=== PATIENT | male | born 2000 | race Caucasian/White ===

== ENCOUNTER 2021-02-21 12:46 | Emergency (ER) | payer OTHER ==
[~2021-02-21] VITALS: Ht 180.3 cm; Wt 71.6 kg
[2021-02-21] MEDS ORDERED: LIDOCAINE 1%/EPI 1:100,000 20 ML VIAL. IJ ONE (14:15)
[2021-02-21] MEDS ORDERED: HYDROcodone/APAP 5/325MG 1 TAB TABLET PO ONE (14:15)
--- NOTE | 2021-02-21 14:41 | PHYS DOC ---
Past History Past Surgical History: No Surgical History (TOMASZ DAVILA APRN) Additional Smoking Information: VAPES Alcohol Use: Occasionally (TOMASZ DAVILA APRN) General Adult EDM: Chief Complaint: INSECT BITE HPI: HPI: Patient is a 20-year-old male who presents with abscess to right side of chest. [facility] and placed on Keflex. Patient states that area is tender. Denies taking anything for discomfort. Denies fever. Denies medical history. (TOMASZ DAVILA APRN) Review of Systems: Review of Systems: Constitutional: Denies fever or chills Eyes: Denies change in visual acuity HENT: Denies nasal congestion or sore throat Respiratory: Denies cough or shortness of breath Cardiovascular: Denies chest pain or edema GI: Denies abdominal pain, nausea, vomiting, bloody stools or diarrhea : Denies dysuria Musculoskeletal: Denies back pain or joint pain Integument: Reports red, swollen, warm bite to right anterior chest Neurologic: Denies headache, focal weakness or sensory changes Endocrine: Denies polyuria or polydipsia Lymphatic: Denies swollen glands Psychiatric: Denies depression or anxiety (TOMASZ DAVILA APRN) Current Medications: Current Meds: Current Medications Medications (Trade) Dose Ordered Sig/Sussy Start Time Stop Time Status Last Admin Dose Admin Acetaminophen/ Hydrocodone Bitart (Lortab 5/325) 1 tab 1X ONCE 02/21/21 14:15 02/21/21 14:16 DC 02/21/21 14:19 1 TAB Lidocaine/ Epinephrine (Xylocaine 1%-Epi 1:100,000) 20 ml 1X ONCE 02/21/21 14:15 02/21/21 14:16 DC 02/21/21 14:20 20 ML (TOMASZ DAVILA APRN) Allergies: Allergies: Allergies Coded Allergies Type Severity Reaction Last Updated Verified No Known Drug Allergies 02/21/21 No (TOMASZ DAVILA APRN) Physical Exam: PE: Constitutional: Well developed, well nourished, no acute distress, non-toxic appearance. [] HENT: Normocephalic, atraumatic, bilateral external ears normal, oropharynx moist, no oral exudates, nose normal. [] Eyes: PERRLA, EOMI, conjunctiva normal, no discharge. [] Neck: Normal range of motion, no tenderness, supple, no stridor. [] Cardiovascular:Heart rate regular rhythm, no murmur [] Lungs & Thorax: Bilateral breath sounds clear to auscultation [] Abdomen: Bowel sounds normal, soft, no tenderness, no masses, no pulsatile masses. [] Skin: Warm, red, raised, tender, abscess to right anterior chest Back: No tenderness, no CVA tenderness. [] Extremities: No tenderness, no cyanosis, no clubbing, ROM intact, no edema. [] Neurologic: Alert and oriented X 3, normal motor function, normal sensory function, no focal deficits noted. [] Psychologic: Affect normal, judgement normal, mood normal. [] (TOMASZ DAVILA APRN) Current Patient Data: Vital Signs: Vital Signs Date Time Temp Pulse Resp B/P (MAP) Pulse Ox O2 Delivery O2 Flow Rate FiO2 02/21/21 14:19 20 Room Air 02/21/21 13:06 98.9 75 113/63 96 (TOMASZ DAVILA APRN) EKG: EKG: [] (TOMASZ DAVILA APRN) Radiology/Procedures: Radiology/Procedures: [] (TOMASZ DAVILA APRN) Heart Score: C/O Chest Pain: No Risk Factors: Risk Factors: DM, Current or recent (<one month) smoker, HTN, HLP, family history of CAD, obesity. Risk Scores: Score 0 - 3: 2.5% MACE over next 6 weeks - Discharge Home Score 4 - 6: 20.3% MACE over next 6 weeks - Admit for Clinical Observation Score 7 - 10: 72.7% MACE over next 6 weeks - Early Invasive Strategies (TOMASZ DAVILA APRN) Course & Med Decision Making: Course & Med Decision Making Pertinent Labs and Imaging studies reviewed. (See chart for details) [] 20-year-old male presents with abscess to right side of chest. Patient was placed on Keflex 3 days ago. Reports tenderness to the area. Hydrocodone 5/325 given for pain. I&D abscess. Purulent discharge was expressed from abscess. Packed with 1 inch gauze. Wound covered with gauze. Instructed patient to keep the wound clean, dry and covered with gauze. Treated patient to remove packing in 48 hours. Take ibuprofen and Tylenol at home for discomfort. Please follow-up with PCP for wound check in 48 hours. (TOMASZ DAVIAL APRN) Course & Med Decision Making I was the Attending physician on the above date of service of this patient. This patient was evaluated, examined, treated, and dispositioned from the emergency department by the mid-level practitioner. Although I was working at the time , no assistance was requested. Electronically signed, Abdi Newman DO (ABDI NEWMAN DO) Jailene Disclaimer: Jailene Disclaimer: This electronic medical record was generated, in whole or in part, using a voice recognition dictation system. (TOMASZ DAVILA APRN) Incision and Drainage Indication: Abscess Procedure: The patient was positioned appropriately and the skin over the incision site was cleaned and prepped for procedure. Local anesthesia was bad work gatherer with epi an incision was then made over the abscess and drainage material was expressed. Loculations were broken up. The drainage cavity was then packed. The patients tetanus status up-to-date. The patient tolerated the procedure well. Complications: No complications. (TOMASZ DAVILA APRN) Departure Departure: Impression: Primary Impression: Abscess Disposition: 01 HOME / SELF CARE / HOMELESS Condition: STABLE Referrals: PCP,UNKNOWN (PCP) Patient Instructions: Abscess, [id number] Additional Instructions: You are seen the emergency room for abscess to the right side of your chest. You were given hydrocodone for pain. Your abscess was drained and packed. Ibuprofen and Tylenol at home for discomfort. Make sure you keep the wound clean dry and covered. I would like you to follow-up with your PCP in 48 hours to have the wound checked, and packing removed. Turn emergency room if you have worsening symptoms or concerns. EMERGENCY DEPARTMENT GENERAL DISCHARGE INSTRUCTIONS Thank you for coming to [facility] (ED) today and trusting us with you care. We trust that you had a positivie experience in our Emergency Department. If you wish to speak to the department management, you may call the director at [phone]. YOUR FOLLOW UP INSTRUCTIONS ARE FOLLOWS: 1. Do you have a private Doctor? If you do not have a private doctor, please ask for a resource list of physicians or clinics that may be able to assist you with follow up care. 2. The Emergency Physician has interpreted your x-rays. The X-Ray specialist will also review them. If there is a change in the findings, you will be notified in 48 hours when at all possible. 3. A lab test or culture has been done, your results will be reviewed and you will be notified if you need a change in treatment. ADDITIONAL INSTRUCTIONS AND INFORMATION: 1. Your care today has been supervised by a physician who is specially trained in emergency care. Many problems require more than one evaluation for a complete diagnosis and treatment. We recommend that you schedule your follow up appointment as recommended to ensure complete treatment of you illness or injury. If you are unable to obtain follow up care and continue to have a problem, or if your condition worsens, we recommend that you return to the ED. 2. We are not able to safely determine your condition over the phone nor are we able to give sound medical advice over the phone. For these safety reasons, if you call for medical advice we will ask you to come to the ED for further evaluation. 3. If you have any questions regarding these discharge instructions please call the ED at [phone]. SAFETY INFORMATION: In the interest of safety, wellness, and injury prevention; we encourage you to wear your sealbelt, if you smoke; quite smoking, and we encourage family to use a pr otective helmet for bicycling and other sporting events that present an increased risk for head injury. IF YOUR SYMPTOMS WORSEN OR NEW SYMPTOMS DEVELOP, OR YOU HAVE CONCERNS ABOUT YOUR CONDITION; OR IF YOUR CONDITION WORSENS WHILE YOU ARE WAITING FOR YOUR FOLLOW UP APPOINTMENT; EITHER CONTACT YOUR PRIMARY CARE DOCTOR, THE PHYSICIAN WHOSE NAME AND NUMBER YOU WERE GIVEN, OR RETURN TO THE ED IMMEDIATELY. TOMASZ DAVILA APRN Feb 21, 2021 14:41 ABDI NEWMAN DO Feb 27, 2021 08:26
[2021-02-21 15:30] VITALS: BP 114/74
[2021-02-21] MEDS ORDERED: ONDANSETRON ODT 4 MG TAB.RAPDIS PO ONE (15:30)
== END 2021-02-21 15:35 | disposition home or self-care (01) ==
LOC: ER 12:46
DX: J86.9 Pyothorax without fistula (principal); L02.213 Cutaneous abscess of chest wall
CPT/HCPCS: 10060; 99283; Q0162

== ENCOUNTER 2021-02-23 15:44 | Emergency (ER) | payer OTHER ==
[~2021-02-23] VITALS: Ht 180.3 cm; Wt 71.6 kg
[2021-02-23 16:00] VITALS: BP 127/61
--- NOTE | 2021-02-23 16:23 | PHYS DOC ---
Past History Past Surgical History: No Surgical History (ELVA CLARK APRN) Alcohol Use: None (ELVA CLARK APRN) Adult General Chief Complaint Chief Complaint: WOUND RECHECK/SUTURE REMOVAL HPI HPI Patient is a 20-year-old male presents emergency department for wound check after I&D 2 days ago here at [facility]. Patient reports the infection is looking much better. (ELVA CLARK APRN) Review of Systems Review of Systems 14 body systems of review of systems have been reviewed. See HPI for pertinent positives and negative responses, otherwise all other systems are negative, nonpertinent or noncontributory. Constitutional: Negative except as outlined in HPI above. Skin: Negative except as outlined in HPI above. Eyes: Negative except as outlined in HPI above. HENT: Negative except as outlined in HPI above. Respiratory: Negative except as outlined in HPI above. Cardiovascular: Negative except as outlined in HPI above. GI: Negative except as outlined in HPI above. : Negative except as outlined in HPI above. Musculoskeletal: Negative except as outlined in HPI above. Integument: Negative except as outlined in HPI above. Neurologic: Negative except as outlined in HPI above. Endocrine: Negative except as outlined in HPI above. Lymphatic: Negative except as outlined in HPI above. Psychiatric: Negative except as outlined in HPI above. (ELVA CLARK APRN) Allergies Allergies Allergies Coded Allergies Type Severity Reaction Last Updated Verified No Known Drug Allergies 02/21/21 No (ELVA CLARK APRN) Physical Exam Physical Exam Constitutional: Well developed, well nourished, no acute distress, non-toxic appearance. 20-year-old male in no apparent distress. HENT: Normocephalic, atraumatic. Eyes: Conjunctiva normal, no discharge. Neck: Normal range of motion, no stridor. Cardiovascular: No cyanosis appreciated, distal cap refill less than 2 seconds. Lungs & Thorax: Patient is in no respiratory distress, no audible adventitious lung sounds appreciated. Abdomen: Nontender, no abnormalities noted. Skin: Warm, dry, no erythema, no rash. I&D site has packing in place, purulent drainage, pink erythema around wound. Back: No tenderness, no deformities. Extremities: No tenderness, no cyanosis, no clubbing, ROM intact, no edema. [] Neurologic: Alert and oriented X 3, normal motor function, normal sensory function, no focal deficits noted. Psychologic: Affect normal, judgement normal, mood normal. (ELVA CLARK APRN) Current Patient Data Vital Signs Vital Signs Date Time Temp Pulse Resp B/P (MAP) Pulse Ox O2 Delivery O2 Flow Rate FiO2 02/23/21 16:00 98.4 72 16 127/61 98 Room Air (ELVA CLARK APRN) EKG EKG [] (ELVA CLARK APRN) Radiology/Procedures Radiology/Procedures [] (ELVA CLARK APRN) Heart Score C/O Chest Pain: No Risk Factors: Risk Factors: DM, Current or recent (<one month) smoker, HTN, HLP, family history of CAD, obesity. Risk Scores: Risk Factors: DM, Current or recent (<one month) smoker, HTN, HLP, family history of CAD, obesity. (ELVA CLARK APRN) Course & Med Decision Making Course & Med Decision Making Pertinent Labs and Imaging studies reviewed. (See chart for details) 20-year-old male, vital signs reviewed, presents emergency department for wound check from I&D 2 days ago. The packing was removed from the I&D site. The cavity was irrigated with 500 cc sterile water using 60 cc syringe and splash guard. The I&D wound was then dressed with bacitracin and Band-Aid. Discussed with patient to continue antibiotic regimen, strict return to ER precautions, follow-up with PCP soon, patient is amenable to ED discharge planning. Discussed with the patient all findings and diagnostic testing as well as the need to follow-up with their primary care provider for further evaluation and treatment or return to the ED if any new or worsening symptoms. Strict return precautions were also discussed at length, the patient voiced understanding and agreement with the discharge planning. The patient was nontoxic in appearance, in no apparent distress, and hemodynamically stable at the time of disposition. (ELVA CLARK APRN) Dragon Disclaimer Dragon Disclaimer This electronic medical record was generated, in whole or in part, using a voice recognition dictation system. (ELVA CLARK APRN) Attending Co-Sign The patient was seen and interviewed as well as examined at the bedside. The chart was reviewed. The case was discussed. Agree with the plan of care. (PHILOMENA MAS DO) Departure Departure: Impression: Primary Impression: Encounter for wound re-check Disposition: HOME / SELF CARE / HOMELESS Condition: GOOD Referrals: PCP,UNKNOWN (PCP) Patient Instructions: Wound Check Additional Instructions: You were seen in the emergency department for a recheck of your abscess that was drained 2 days ago. The packing was removed. Your abscess site was vigorously irrigated with 500 cc of sterile water. Your abscess site was dressed with bacitracin ointment and a Band-Aid prior to your discharge. As we discussed, please keep clean and dry, apply antibiotic ointment until healed. Continue to take your oral antibiotics as directed. Return to the emergency department for worsening symptoms or other concerns. Thank you for visiting our Emergency Department. It was a pleasure taking care of you today in the emergency department and we appreciate you trusting us with your care. If any additional problems come up don't hesitate to return to visit us. Please follow up with your primary care provider so they can plan additional care if needed and know about the problem that you had. If symptoms worsen come back to the Emergency Department. Any concerning symptoms that start such as chest pain, shortness of air, weakness or numbness on one side of the body, running high fevers or any other concerning symptoms return to the ER. ELVA CLARK APRN Feb 23, 2021 16:23 PHILOMENA MAS DO Feb 24, 2021 14:12
[2021-02-23] MEDS ORDERED: BACITRACIN ZINC TOPICAL OINT PACKET. TP ONE (16:30)
== END 2021-02-23 16:33 | disposition home or self-care (01) ==
LOC: ER 15:44
DX: Z48.01 Encounter for change or removal of surgical wound dressing (principal)
CPT/HCPCS: 99282